=== PATIENT | female | born 1955 | race Caucasian/White ===

== ENCOUNTER → 2017-04-20 | Outpatient (CLI) | payer BC ==
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
== END | disposition home or self-care (01) ==
LOC: RADMRIMAIN 16:36
PROVIDERS: ATTEND Orthopaedic Surgery
DX: S83.422A Sprain of lateral collateral ligament of left knee, initial encounter (principal); M17.12 Unilateral primary osteoarthritis, left knee; M22.42 Chondromalacia patellae, left knee

== ENCOUNTER 2017-05-07 09:50 | Day surgery (SDC) | payer BC ==
[2017-04-30 15:11] VITALS: BMI 23.1
[~2017-05-07 09:50] MED LIST: DEXAMETHASONE SOD PHOSPHATE 10 MG/ML 1 ML VIAL IV ONE; LACTATED RINGERS 1,000 ML IV ONE; ONDANSETRON 4 MG/2 ML VIAL IVP ONE
[2017-05-07] MEDS ORDERED: PROPOFOL 10 MG/ML 20 ML VIAL IV ONE (11:36)
[2017-05-07] MEDS ORDERED: LIDOCAINE 1% INJ 10MG/ML (20 ML MDV) ONE (11:36)
--- NOTE | 2017-05-07 12:06 | P.PCN ---
Date of Procedure: 05/07/17 Procedure(s) Performed: Procedure: Total colonoscopy. Preoperative diagnosis: Screening for neoplasia, patient has history of colon cancer in her brother. 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 Preparation: HalfLytely prep. Sedation: Was provided by anesthesia. Brief clinical history: The patient is 61-year-old female who is scheduled for this evaluation because of family history of colon cancer in her brother who was recently diagnosed with colon cancer at age 65. The patient has no abdominal complaints, bleeding or anemia. This would be her first colonoscopy. Procedure with the patient on her left lateral decubitus position and after informed consent and adequate sedation, the perianal area was inspected and it did not show any fissures or fistulas. There were no masses felt on digital rectal examination. The Olympus CFQ 160L video colonoscope was then inserted in the rectum in the usual fashion and advanced to the cecum. There was hyperpigmentation and mosaic patterns observed along the length of the bowel consistent with melanosis coli with no evidence of polyps, cancers, diverticular disease or strictures. The patient tolerated the procedure well. Plan: The patient was reassured. Discussed dietary measures. She will follow- up with you as planned and I recommended repeat exam in 5 years.
[2017-05-07 16:34] VITALS: BP 107/70; PULSE 70; RESP 18; TEMP 97.3
== END 2017-05-07 12:53 | disposition home or self-care (01) ==
LOC: ORWHC2ENDO 09:50
DX: Z12.11 Encounter for screening for malignant neoplasm of colon (principal); K63.89 Other specified diseases of intestine; Z80.0 Family history of malignant neoplasm of digestive organs; F32.9 Major depressive disorder, single episode, unspecified; Z79.899 Other long term (current) drug therapy; Z88.5 Allergy status to narcotic agent; Z88.8 Allergy status to other drugs, medicaments and biological substances
CPT/HCPCS: J2405; J2001; J2704; G0105

== ENCOUNTER 2020-03-19 11:48 | Day surgery (SDC) | payer BC, MEDICARE ==
[2020-03-16 11:02] VITALS: BMI 24.9
--- NOTE | 2020-03-18 16:12 | HP ---
HISTORY AND PHYSICAL DATE OF SURGERY: 03/19/2020 Farzana Soares is a 64-year-old patient seen with progressive left knee pain. Options for treatment were discussed with her. She elected to proceed with left knee arthroscopy. Consent regarding the procedure was obtained. PAST MEDICAL HISTORY: Noncontributory. PAST SURGICAL HISTORY: Noncontributory. DAILY MEDICATIONS: None. SOCIAL HISTORY: She denies current tobacco use. PHYSICAL EXAMINATION: Evaluation of the left knee range has motion is 0-120. She has a mild effusion. Tenderness along the medial joint line. Tenderness along the lateral joint line. Positive medial Karly's. Positive lateral Karly's. Ligaments are stable. Hip rotation without pain. Distal neurovascular exam is intact. RADIOGRAPHS: Left knee radiographs revealed moderate osteoarthritic changes. Left knee MRI revealed moderate to severe osteoarthritic changes. IMPRESSION: 1. Internal derangement, left knee with meniscal tear versus osteochondral tear. 2. Left knee osteoarthritis. PLAN: Left knee arthroscopy with partial meniscectomy versus chondroplasty and debridement. MMODL / IJN: [id number] /
[~2020-03-19 11:48] MED LIST changes: -DEXAMETHASONE SOD PHOSPHATE 10 MG/ML 1 ML VIAL IV ONE; +DEXAMETHASONE SOD PHOSPHATE 4 MG/ML 1 ML VIAL IV ONE; -LACTATED RINGERS 1,000 ML IV ONE; +LACTATED RINGERS 1,000 ML IV SCH; +LIDOCAINE 1% (10MG/ML) FOR IV START INTRADERMA PRN; +MIDAZOLAM 2 MG/2 ML VIAL IV PRN
[2020-03-19 12:35] LABS: HCT 39.4 % (34.0-46.0); HGB 13.7 gm/dL (11.4-16.0); MCH 30.6 pg (25.0-35.0); MCHC 34.7 g/dL (31.0-37.0); MCV 88.1 fL (80.0-100.0); Mean Platelet Volume 6.9; Platelet Count 290 k/uL (150-450); RBC 4.47 m/uL (3.80-5.40); WBC 4.3 k/uL (3.8-10.6)
[2020-03-19 12:51] LABS: African American GFR (CKD) >90 (>60 ml/min/1.73 sqM); Anion Gap 5 mmol/L; Blood Urea Nitrogen 11 mg/dL (7-17); Calcium 9.8 mg/dL (8.4-10.2); Carbon Dioxide 27 mmol/L (22-30); Chloride 108 mmol/L (98-107); Glucose 104 mg/dL (74-99); Non-African American GFR(CKD) >90 (>60 ml/min/1.73 sqM); Potassium 3.8 mmol/L (3.5-5.1); Sodium 140 mmol/L (137-145)
[2020-03-19] MEDS ORDERED: fentaNYL (PF) 50 MCG/ML 2 ML AMP ONE (13:45)
[2020-03-19] MEDS ORDERED: MIDAZOLAM 2 MG/2 ML VIAL ONE (13:45)
[2020-03-19] MEDS ORDERED: KETOROLAC 15 MG/ML 1 ML VIAL ONE (13:45)
[2020-03-19] MEDS ORDERED: LIDOCAINE 1% INJ 10MG/ML (20 ML MDV) ONE (13:45)
[2020-03-19] MEDS ORDERED: PROPOFOL 10 MG/ML 20 ML VIAL IV ONE (13:45)
--- NOTE | 2020-03-19 14:36 | P.OP ---
Date of Procedure: 03/19/20 Preoperative Diagnosis: Internal derangement left knee Postoperative Diagnosis: 1. Tear lateral meniscus left knee 2. Grade 3 chondromalacia medial femoral condyle left knee 3. Grade 3 chondromalacia patella left knee 4. Reactive synovitis medial, lateral and suprapatellar compartments left knee Procedure(s) Performed: 1. Arthroscopic partial lateral meniscectomy left knee 2. Arthroscopic chondroplasty medial femoral condyle left knee 3. Arthroscopic chondroplasty patella left knee 4. Arthroscopic partial synovectomy medial, lateral and suprapatellar compartments left knee Anesthesia: ASHISHA, local Surgeon: Michael Alvarez Estimated Blood Loss (ml): 7 Pathology: none sent Condition: stable Disposition: PACU Indications for Procedure: 64-year-old patient seen with progressive left knee pain. After treatment options were discussed, she elected to proceed with arthroscopy Operative Findings: see description of procedure Description of Procedure: Patient was taken to the operative suite. Patient underwent a general anesthetic by the department of anesthesia. Patient was given preoperative antibiotics. The left lower extremity was placed in a well-padded arthroscopic leg perales. The left leg was prepped and draped in the normal sterile orthopedic fashion. A lateral parapatellar and suprapatellar incision was made. Trochars were inserted. Arthroscopy was initiated. Suprapatellar pouch revealed diffuse thick reactive synovitis. The patellofemoral joint appeared to articulate congruently. There was grade 3 chondromalacia of the patella and femoral sulcus with diffuse osteochondral tears present.. The scope was guided into the medial gutter. No loose bodies or plica were identified. The scope was then guided into the medial compartment. A medial parapatellar incision was made. Trocar inserted followed by probe. Medial meniscus was probed and found to be stable. There were diffuse grade 3 chondromalacia changes of medial femoral condyle with osteochondral flap tears present. There was thick reactive some-itis anteriorly. I performed a chondroplasty of the medial femoral condyle. I performed a partial synovectomy decompressing the reactive synovitis. The residual osteochondral surface appeared stable. There was good decompression of the synovitis. Scope and probe were then guided into the intercondylar notch. Cruciates were identified, probed and found to be stable. The scope and probe were then guided into lateral compartment. There was a tear along the posterior horn lateral meniscus along with some radial tear in the midbody area. There were grade 1/2 under malacia changes of the lateral femoral condyle with no osteochondral tears present. There was thick reactive synovitis anteriorly. Performed a partial lateral meniscectomy. I performed a partial synovectomy. The residual meniscus was stable. There was good decompression of the synovitis. The scope was in guided back into the suprapatellar compartment. Used a motorized shaver into the suprapatellar compartment. I performed a chondroplasty the patella. I performed a partial synovectomy. Shaver was removed. There was good decompression of synovitis. The residual osteochondral surface of patella stable. I took more look on the entire knee, no residual debris. Instruments were now removed from the joint. The joint was infiltrated with .25% Marcaine. The portal sites were approximated nylon suture.. Sterile dressings were applied. The patient was placed into a GEGE hose. No tourniquet was utilized. The patient was awakened, transferred to a bed and taken to recovery stable satisfactory condition.
[2020-03-19 14:39] VITALS: TEMP 97.4
[2020-03-19] MEDS ORDERED: diphenhydrAMINE 50 MG/ML 1 ML VIAL IVP ONE (14:42)
[2020-03-19] MEDS: HYDROmorphone 0.5 MG/0.5 ML SYRINGE IVP PRN ×4 (14:44→15:23)
[2020-03-19] MEDS ORDERED: LACTATED RINGERS 1,000 ML IV ONE (15:40)
[2020-03-19 16:04] VITALS: BP 125/70
[2020-03-19 16:17] VITALS: PULSE 83; RESP 100
== END 2020-03-19 16:50 | disposition home or self-care (01) ==
LOC: OR 11:48
PROVIDERS: ATTEND Orthopaedic Surgery
DX: M23.252 Derangement of posterior horn of lateral meniscus due to old tear or injury, left knee (principal); M22.42 Chondromalacia patellae, left knee; M65.862 Other synovitis and tenosynovitis, left lower leg; M17.12 Unilateral primary osteoarthritis, left knee; Z98.890 Other specified postprocedural states
CPT/HCPCS: 80048; 85027; 29881; J2250; J1200; J1100; J2405; J0690; J2001; J3010; J1885; J2704; J1170

== ENCOUNTER 2021-03-28 01:37 | Emergency (ER) | payer MEDICARE ==
[2021-03-28 02:35] VITALS: BP 140/84; PULSE 108; RESP 22; TEMP 100
[2021-03-28] MEDS ORDERED: IBUPROFEN 600 MG TAB PO STA (03:07)
[2021-03-28] MEDS ORDERED: ACETAMINOPHEN TAB 500 MG TAB PO STA (03:07)
--- NOTE | 2021-03-28 03:07 | ED ---
URI HPI - General Chief Complaint: Upper Respiratory Infection Stated Complaint: Headache, Fever Time Seen by Provider: 03/28/21 02:26 Source: patient Mode of arrival: ambulatory Limitations: no limitations - Related Data Home Medications Medication Instructions Recorded Confirmed Turmeric Root Extract [Turmeric] 500 mg PO DAILY 03/16/20 03/19/20 Previous Rx's Medication Instructions Recorded traMADol HCl [Ultram] 50 mg PO Q6H PRN #15 tab 03/19/20 Allergies Allergy/AdvReac Type Severity Reaction Status Date / Time acetaminophen [From Vicodin] Allergy red,hot Verified 03/28/21 02:36 face tramadol Allergy red face, Verified 03/28/21 02:36 blotchiness under the eyes hydrocodone AdvReac red face Verified 03/28/21 02:36 Review of Systems ROS Statement: Those systems with pertinent positive or pertinent negative responses have been documented in the HPI. ROS Other: All systems not noted in ROS Statement are negative. Past Medical History Past Medical History: Osteoarthritis (OA) Additional Past Medical History / Comment(s): varicose veins, History of Any Multi-Drug Resistant Organisms: None Reported Past Surgical History: Breast Surgery, Tonsillectomy Additional Past Surgical History / Comment(s): varicose vein surgery left leg, douglas breast implants/replaced/ later removed, colonoscopy Past Anesthesia/Blood Transfusion Reactions: Previous Problems w/ Anesthesia, Postoperative Nausea & Vomiting (PONV) Additional Past Anesthesia/Blood Transfusion Reaction / Comment(s): "hard time coming out" Past Psychological History: No Psychological Hx Reported Smoking Status: Never smoker Past Alcohol Use History: None Reported Past Drug Use History: None Reported - Past Family History Father Family Medical History: Cancer Additional Family Medical History / Comment(s): skin Mother Family Medical History: Cancer Additional Family Medical History / Comment(s): skin General Exam Limitations: no limitations Course Vital Signs 03/28/21 02:30 Temperature 100.0 F H Pulse Rate 108 H Respiratory 22 Rate Blood Pressure 140/84 O2 Sat by Pulse 99 Oximetry Medical Decision Making - Lab Data Lab Results 03/28/21 Range/Units 02:36 Coronavirus (PCR) Detected A (Not Detectd) Disposition Clinical Impression: Coronavirus infection Disposition: HOME SELF-CARE Condition: Good Instructions (If sedation given, give patient instructions): Coronavirus Disease 2019 (COVID-19) Is patient prescribed a controlled substance at d/c from ED?: No Referrals: Jennifer Fiore MD [Primary Care Provider] - 1-2 days
[2021-03-28] MEDS ORDERED: CASIRIVIMAB (REGN10933) (EUA) 600 MG, IMDEVIMAB (REGN10987) (EUA) 600 MG in SODIUM CHLO... IVPB ONE (04:30)
[2021-03-28] MEDS ORDERED: SODIUM CHLORIDE 0.9% 50 ML IVPB ONE (04:30)
== END 2021-03-28 06:20 | disposition home or self-care (01) ==
LOC: EC 01:37
DX: U07.1 COVID-19 (principal); M19.90 Unspecified osteoarthritis, unspecified site
CPT/HCPCS: 87635; 99284; 96360; Q0243

== ENCOUNTER 2023-06-23 11:21 | Day surgery (SDC) | payer MEDICARE ==
[~2023-06-23 11:21] MED LIST changes: -DEXAMETHASONE SOD PHOSPHATE 4 MG/ML 1 ML VIAL IV ONE; -MIDAZOLAM 2 MG/2 ML VIAL IV PRN; -ONDANSETRON 4 MG/2 ML VIAL IVP ONE
[2023-06-23] MEDS: LACTATED RINGERS 1,000 ML IV ONE ×2 (12:36→12:58)
[2023-06-23 12:44] VITALS: TEMP 97.7
[2023-06-23] MEDS ORDERED: PROPOFOL 10 MG/ML 20 ML VIAL IV ONE (13:03)
--- NOTE | 2023-06-23 13:20 | P.PCN ---
Date of Procedure: 06/23/23 Procedure(s) Performed: BRIEF HISTORY: Patient is a 67-year-old pleasant white female scheduled for an elective colonoscopy as a part of screening for colon cancer and family history of colon cancer. Her brother was dilated colon cancer at age 65. PROCEDURE PERFORMED: Colonoscopy. PREOPERATIVE DIAGNOSIS: Screening for colon cancer and family history of colon cancer. IV sedation per Anesthesia. PROCEDURE: After informed consent was obtained, the patient, was brought into the endoscopy unit. IV sedation was administered by Anesthesia under continuous monitoring. Digital rectal examination was normal. Initially the Olympus CF-160 flexible video colonoscope was then inserted in the rectum, gradually advanced into the cecum without any difficulty. Careful examination was performed as the scope was gradually being withdrawn. Ileocecal valve and the appendiceal orifice were visualized and appeared normal. Prep was excellent. Mucosa of the cecum, ascending colon, transverse colon, descending colon, sigmoid colon, and rectum appeared normal. Retroflexion was performed in the rectum and no lesions were seen. The patient tolerated the procedure well. IMPRESSION: Normal-appearing colon from rectum to cecum no evidence of colorectal neoplasia . RECOMMENDATIONS: Findings of this examination were discussed with the patient as well as a family. She was advised to have a repeat colonoscopy in 5 years because of family history of colon cancer.
[2023-06-23 13:45] VITALS: BP 117/72; PULSE 78; RESP 18
== END 2023-06-23 13:54 | disposition home or self-care (01) ==
LOC: ORWHC2ENDO 11:21
PROVIDERS: ATTEND Internal Medicine Gastroenterology
DX: Z12.11 Encounter for screening for malignant neoplasm of colon (principal); E07.9 Disorder of thyroid, unspecified; M19.90 Unspecified osteoarthritis, unspecified site; Z79.890 Hormone replacement therapy; Z88.5 Allergy status to narcotic agent; Z88.6 Allergy status to analgesic agent; Z80.0 Family history of malignant neoplasm of digestive organs
CPT/HCPCS: J2704; G0105; 45378